=== PATIENT | male | born 1990 | race Caucasian/White ===

== ENCOUNTER 2022-11-03 12:14 | Emergency (ER) | payer OTHER, SELFPAY ==
[2022-11-03 12:14] VITALS: BP 129/76; PULSE 82; RESP 18; TEMP 36.7; O2SAT 99; BMI 22.4
--- NOTE | 2022-11-03 12:32 | CT_ITS ---
EXAM: CT HEAD WITHOUT INTRAVENOUS CONTRAST CLINICAL INDICATION: trauma TECHNIQUE: Multiple axial images were obtained of the head without intravenous contrast. This CT exam was performed using one or more of the following dose reduction techniques: automated exposure control, adjustment of the mA and/or kV according to patient size, and/or use of iterative reconstruction technique. This report was created using [employer] report [employer] technology. COMPARISON: None. FINDINGS: BRAIN AND EXTRA-AXIAL SPACES: Normal. No intra- or extra-axial hemorrhage. No acute infarct. No intracranial mass or mass effect. There is preservation of the zavaleta/white matter interface. Posterior fossa structures are unremarkable. Ventricles are appropriate for age. No hydrocephalus. Basal cisterns are patent. BONES/JOINTS: Acute left facial fractures noted involving the maxilla, lateral wall and floor of the orbit and frontal zygomatic junction. Left maxillary sinus contains moderate amount of blood. SINUSES: No acute sinusitis. MASTOID AIR CELLS: Normal. Clear. ORBITS: Visualized globes, extraocular muscles, optic nerves and retrobulbar fat appear unremarkable. CT/Brain/Head without Contrast IMPRESSION: 1. Acute left zygomaticomaxillary fracture with involvement of the left orbit. 2. No acute intracranial abnormality. Electronically Signed: David Alex MD at 13:44 EDT ,
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
[2022-11-03] MEDS: Acetaminophen 500 MG Tablet 1000 MG PO (12:37)
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
== END 2022-11-03 14:12 | disposition home or self-care (01) ==
PROVIDERS: Emergency Provider Emergency Medicine; Visit Provider Emergency Medicine
DX: S02.85XA Fracture of orbit, unspecified, initial encounter for closed fracture (principal); S06.9X1A Unspecified intracranial injury with loss of consciousness of 30 minutes or less, initial encounter; S02.40FA Zygomatic fracture, left side, initial encounter for closed fracture; F17.210 Nicotine dependence, cigarettes, uncomplicated; Y04.8XXA Assault by other bodily force, initial encounter; Y92.89 Other specified places as the place of occurrence of the external cause
CPT/HCPCS: 70450; 73610; 99283

== ENCOUNTER 2025-06-18 23:59 | Emergency (ER) | payer OTHER, SELFPAY ==
[2025-06-19] VITALS: BP 126/70; PULSE 62; RESP 16; TEMP 36.4; O2SAT 99; BMI 22.9
[2025-06-19] MEDS: Lidocaine 1% (20 ml mdv) 20 ML Vial INFILT (00:15)
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
--- NOTE | 2025-06-19 01:44 | EX.ED.GENINJ ---
HPI History of Present Illness Chief Complaint: Laceration Narrative Narrative: Patient was seen and examined after presenting to ED for laceration of the left hand patient was working on a car when he cut himself unknown last tetanus not on blood thinners no bleeding disorder. PFSH PFSH Medical History no medical history Home Medications ?Medication ?Instructions ?Recorded ?Last Taken ?Type NK 06/19/25 Unknown History Allergy/AdvReac Type Severity Reaction Status Date / Time No Known Allergies Allergy Verified 06/19/25 00:01 Family History no significant family his Surgical History no surgical history Social History Smoking Status: Current every day smoker tobacco type: cigarettes ROS ROS ED ROS Narrative Pertinent Positives: Left hand laceration while working on a car Pertinent Negatives: Bleeding disorders use of anticoagulation numbness tingling The remainder of review of systems negative unless otherwise stated in the HPI above. Systems reviewed including constitutional, psychiatric, cardiovascular, respiratory, integument, HENT, gastrointestinal. EXAM Physical Exam Narrative Exam Narrative: Afebrile hemodynamically stable does not appear toxic or in distress he has approximately of 1-1/2 to 2 cm laceration in the middle of the palm of his left hand bleeding is otherwise controlled he has intact MSPs Const Vital Signs: 06/19/25 00:00 Temperature 97.5 F L Temperature Source Oral Pulse Rate 62 Respiratory Rate 16 Blood Pressure 126/70 H Blood Pressure Mean 88 Pulse Ox 99 Oxygen Delivery Method Room Air MDM MDM MDM Narrative Medical decision making narrative: Nursing notes, triage notes, available previous documentation, and vital signs were reviewed. Any discrepancies noted were addressed. Differential Diagnoses: Simple laceration of the hand I do not see any evidence of a foreign body Interventions: Tetanus update Procedure: Laceration Repair Confirmed Correct: Patient, procedure, side, site Consent: Patient, Verbal Description Length: 1.5 cm Location: Left palm Shape: Linear Depth: Superficial Anesthesia: 4 mL Preparation: Sterile field Irrigation: Copious, pressure, 150 mL Skin Closure: 3 superficial sutures 5-0 Absorbable Technique: Simple interrupted Complexity: Simple Post-procedure Examination: Normal circulation, motor, sensation. Bleeding Controlled. Procedure Complications: None Patient Tolerated: Well Total Time: 5 minutes Previous Documentation Reviewed: None available or applicable at this time. ED Course: Patient presenting with laceration of left hand he will undergo laceration repair got an updated tetanus already will be given return precautions follow-up recommendations he will be stable for discharge home no tendon involvement. Patient is stable for discharge she tolerated the procedure well This note was made utilizing voice recognition software. All attempts were made to correct spelling or other errors prior to note completion. However, due to the fast-paced nature of emergency medicine, some errors may still be present. Discharge Plan Triage Chief Complaint: Laceration ED Provider: Ambar Joseph Dx/Rx/DC Orders Clinical Impression: Laceration of left palm Instructions: ED Laceration, All Closures Prescriptions: No Action NK Primary Care Provider: Care Physician,No Primary Referrals: Care Physician,No Primary [Primary Care Provider, Medical] Activity Restrictions/Additional Instructions: Keep the area clean do not scratch or scrub at it but make sure you wash with soap and water and dab over top of it. Watch out for any redness surrounding the area or pus draining from the site if this occurs you should return you do not need to have the stitches removed as they are absorbable the parts that are exposed will eventually fall out Print Language: [place]an Disposition Disposition: Home, Self Care
[2025-06-19 02:48] VITALS: BP 124/87; PULSE 81; RESP 16; TEMP 36.6; O2SAT 99
== END 2025-06-19 02:49 | disposition home or self-care (01) ==
PROVIDERS: Emergency Provider Specialist/Technologist Athletic Trainer; Visit Provider Specialist/Technologist Athletic Trainer
DX: S61.412A Laceration without foreign body of left hand, initial encounter (principal); W26.8XXA Contact with other sharp object(s), not elsewhere classified, initial encounter; Y92.810 Car as the place of occurrence of the external cause; F17.210 Nicotine dependence, cigarettes, uncomplicated; Z23 Encounter for immunization
CPT/HCPCS: 12001; 90715; 99283